=== PATIENT | male | born 1995 | race Caucasian/White ===

== ENCOUNTER 2023-12-17 05:06 | Emergency (ER) | payer MEDICAID ==
[~2023-12-17] VITALS: Ht 175.3 cm; Wt 91.0 kg
[2023-12-17 05:09] VITALS: O2SAT 99
[2023-12-17 06:13] LABS: CLARITY URINE CLEAR (CLEAR); COLOR URINE YELLOW (YELLOW); GLUCOSE URINE NEGATIVE (NEGATIVE); KETONES URINE 1+ (NEGATIVE); LEUKOCYTE ESTERASE URINE NEGATIVE (NEGATIVE); NITRITE URINE NEGATIVE (NEGATIVE); OCCULT BLOOD URINE NEGATIVE (NEGATIVE); PH URINE 5.5 (4.5-8.0); PROTEIN URINE NEGATIVE (NEGATIVE); SPECIFIC GRAVITY URINE 1.015 (1.005-1.030); UROBILINOGEN URINE 0.2 E.U./dL (0.2-1.0)
[2023-12-17 06:21] LABS: *AMPHETAMINES SCREEN URINE PRESUMPTIVE POSITIVE (NEGATIVE); *BARBITURATES SCREEN URINE NEGATIVE (NEGATIVE); *BENZODIAZEPINES SCREEN URINE NEGATIVE (NEGATIVE); *COCAINE SCREEN URINE NEGATIVE (NEGATIVE); CANNABINOID URINE SCREEN NEGATIVE (NEGATIVE); ECSTASY MDMA SCREEN URINE CONF.TEST INDICATED (NEGATIVE); METHADONE URINE SCREEN NEGATIVE (NEGATIVE); OPIATES URINE SCREEN NEGATIVE (NEGATIVE); PHENCYCLIDINE URINE SCREEN NEGATIVE (NEGATIVE)
[2023-12-17 06:25] LABS: CHLORIDE 106 mEq/L (98-107); POTASSIUM 3.4 mEq/L (3.5-5.1); SODIUM 137 mEq/L (136-145)
[2023-12-17 06:26] LABS: CARBON DIOXIDE 23 mEq/L (21-32)
[2023-12-17 06:27] LABS: CALCIUM 9.5 mg/dL (8.7-10.4)
[2023-12-17 06:31] LABS: CREATININE 0.8 mg/dL (0.6-1.3); GLUCOSE 87 mg/dL (70-105); UREA NITROGEN BLOOD 9 mg/dL (9-23)
[2023-12-17 06:32] LABS: ETHANOL BLOOD < 10 mg/dL (<10)
[2023-12-17 06:33] LABS: ACETAMINOPHEN < 2 ug/mL (10-30)
[2023-12-17 06:35] LABS: BASOPHILS % 1.1 % (0.0-2.0); EOSINOPHILS % 1.5 % (0.0-5.0); HEMATOCRIT. 44.7 % (42.0-52.0); HEMOGLOBIN. 15.7 g/dL (14.0-18.0); LYMPHOCYTES % 20.4 % (20.0-50.0); MEAN CORPUSCULAR HEMOGLOBIN 32.8 pg (28.0-32.0); MEAN CORPUSCULAR HGB CONC 35.2 g/dL (31.0-37.0); MEAN CORPUSCULAR VOLUME 93.3 fL (80.0-94.0); MEAN PLATELET VOLUME 8.4 fl (7.4-10.4); MONOCYTES % 9.1 % (2.0-8.0); NEUTROPHILS % 67.9 % (40.0-76.0); PLATELET 293 x1000/uL (130-400); RED BLOOD CELL COUNT 4.79 mill/uL (4.7-6.1); RED CELL DISTRIBUTION WIDTH 12.8 % (11.6-14.6); WHITE BLOOD COUNT 14.3 x1000/uL (4.5-11.0)
[2023-12-17 11:45] VITALS: BP 140/78; PULSE 88; RESP 18; TEMP 98.3
== END 2023-12-17 12:36 | disposition home or self-care (01) ==
LOC: ER 05:22
DX: F15.10 Other stimulant abuse, uncomplicated (principal); F17.200 Nicotine dependence, unspecified, uncomplicated; Z20.822 Contact with and (suspected) exposure to COVID-19; Z86.59 Personal history of other mental and behavioral disorders
CPT/HCPCS: 80305; 80048; 81003; 80307; 80329; 80320; 85025; 36415; 99285; 87426; Z7610; G0480

== ENCOUNTER 2023-12-27 17:42 | Emergency (ER) | payer MEDICAID ==
[~2023-12-27] VITALS: Ht 180.3 cm; Wt 100.0 kg
[2023-12-27 17:44] VITALS: O2SAT 98
[2023-12-27 18:20] VITALS: BP 119/83; PULSE 93; RESP 15; TEMP 98.8
[2023-12-27] MEDS: SODIUM CHLORIDE 0.9% 1,000 ML IV ONE ×2 (18:38→19:30)
[2023-12-27 20:33] LABS: BASOPHILS % 0.6 % (0.0-2.0); HEMATOCRIT. 45.4 % (42.0-52.0); HEMOGLOBIN. 15.6 g/dL (14.0-18.0); LYMPHOCYTES % 30.8 % (20.0-50.0); MEAN CORPUSCULAR HGB CONC 34.3 g/dL (31.0-37.0); MEAN CORPUSCULAR VOLUME 96.1 fL (80.0-94.0); MEAN PLATELET VOLUME 8.4 fl (7.4-10.4); MONOCYTES % 7.6 % (2.0-8.0); PLATELET 233 x1000/uL (130-400); RED BLOOD CELL COUNT 4.73 mill/uL (4.7-6.1); RED CELL DISTRIBUTION WIDTH 12.6 % (11.6-14.6); WHITE BLOOD COUNT 11.5 x1000/uL (4.5-11.0)
[2023-12-27 20:39] LABS: CHLORIDE 109 mEq/L (98-107); POTASSIUM 4.1 mEq/L (3.5-5.1); SODIUM 140 mEq/L (136-145)
[2023-12-27 20:40] LABS: CALCIUM 9.9 mg/dL (8.7-10.4); CARBON DIOXIDE 21 mEq/L (21-32)
[2023-12-27 20:45] LABS: CREATININE 0.7 mg/dL (0.6-1.3); GLUCOSE 92 mg/dL (70-105); UREA NITROGEN BLOOD 10 mg/dL (9-23)
[2023-12-27 20:46] LABS: TROPONIN I HIGH SENSITIVITY 10 ng/L (3.0-53); VALPROIC ACID 77.2 ug/mL (50-100)
[2023-12-27 20:47] LABS: ACETAMINOPHEN < 2 ug/mL (10-30); ALANINE AMINOTRANSFERASE 81 IU/L (10-49); ALBUMIN 4.6 g/dL (3.2-4.8); ASPARTATE AMINOTRANSFERASE 36 IU/L (<34); BILIRUBIN TOTAL 0.8 mg/dL (0.1-1.0); PROTEIN TOTAL 6.9 g/dL (6.0-8.3)
[2023-12-27 20:48] LABS: CREATINE KINASE 102 IU/L (46-171)
[2023-12-27 20:49] LABS: ETHANOL BLOOD < 10 mg/dL (<10)
[2023-12-27 20:50] LABS: CREATINE KINASE MB FRACTION 1.1 ng/mL (0.5-3.6)
== END 2023-12-27 23:17 | disposition left against medical advice (07) ==
LOC: ER 17:42
DX: T43.4X1A Poisoning by butyrophenone and thiothixene neuroleptics, accidental (unintentional), initial encounter (principal); R41.82 Altered mental status, unspecified; F31.9 Bipolar disorder, unspecified; F20.9 Schizophrenia, unspecified; Y92.89 Other specified places as the place of occurrence of the external cause
CPT/HCPCS: 80053; 80307; 80329; 80320; 82550; 82553; 80165; 85025; 84484; 36415; 71045; 70450; 93005; 96360; 96361; 99285; J7030; Z7610; G0480